=== PATIENT | female | born 1975 | race Hispanic/Latino ===

== ENCOUNTER 2023-05-23 17:14 | Emergency (ER) | payer OTHER ==
[~2023-05-23] VITALS: Ht 157.5 cm; Wt 85.3 kg
[2023-05-23 17:39] VITALS: BP 136/59; PULSE 57; RESP 16
[2023-05-23] MEDS ORDERED: IBUP-2077 PO (20:52)
[2023-05-23] MEDS ORDERED: CYCL-309 PO (20:52)
[2023-05-23] MEDS: IBUPROFEN 800 MG TAB PO ONE (22:25)
== END 2023-05-23 22:32 | disposition home or self-care (01) ==
LOC: EDH 17:14
DX: S29.012A Strain of muscle and tendon of back wall of thorax, initial encounter (principal); S60.211A Contusion of right wrist, initial encounter; W01.0XXA Fall on same level from slipping, tripping and stumbling without subsequent striking against object, initial encounter; Y93.89 Activity, other specified; Y92.89 Other specified places as the place of occurrence of the external cause; Y99.8 Other external cause status
CPT/HCPCS: 72072; 73100

== ENCOUNTER 2023-10-12 16:39 | Emergency (ER) | payer OTHER ==
[~2023-10-12] VITALS: Ht 154.9 cm; Wt 89.8 kg
[~2023-10-12 16:39] MED LIST: CYCL-309 PO; IBUP-2077 PO
[2023-10-12] MEDS: CYCLOBENZAPRINE HCL 10 MG TABLET PO ONE (18:11)
[2023-10-12] MEDS: KETOROLAC 60 MG VIAL (30MG/ML) IM ONE (18:12)
[2023-10-12] MEDS ORDERED: CYCL10TA16 PO (18:19)
[2023-10-12] MEDS ORDERED: IBUP-2070 PO (18:19)
[2023-10-12 18:38] VITALS: BP 142/81; PULSE 76; RESP 20; O2SAT 99
== END 2023-10-12 18:36 | disposition home or self-care (01) ==
LOC: EDH 16:39
DX: S49.91XA Unspecified injury of right shoulder and upper arm, initial encounter (principal); W01.10XA Fall on same level from slipping, tripping and stumbling with subsequent striking against unspecified object, initial encounter; Y93.89 Activity, other specified; Y92.89 Other specified places as the place of occurrence of the external cause; Y99.8 Other external cause status
CPT/HCPCS: 99283; 73030; 96372; J1885